=== PATIENT | female | born 1955 | race Caucasian/White ===

== ENCOUNTER 2024-06-22 14:38 | Outpatient (OUT) | payer OTHER, SELFPAY ==
[2024-06-22 15:00] LABS: Basophils Absolute Auto 0.1 10^3/uL (0.0-0.1); Basophils Percent Auto 0.8 % (0.2-2.0); Hemoglobin 15.5 g/dL (12.0-16.0); Lymphocytes Percent Auto 37.6 % (20.5-60.0); Monocytes Absolute Auto 0.8 10^3/uL (0.3-0.8); Monocytes Percent Auto 10.4 % (1.7-12.0); Neutrophils Percent Auto 51.2 % (43.0-75.0); Platelet Count 223 10^3/uL (150-450); White Blood Count 7.9 10^3/uL (4.0-11.0)
[2024-06-22 15:35] LABS: Alanine Aminotransferase 14 U/L (14-59); Albumin Globulin Ratio 0.9; Albumin Level 3.1 g/dL (3.4-5.0); Alkaline Phosphatase 106 U/L (46-116); Aspartate Amino Transferase 18 U/L (15-37); Bilirubin Direct 0.1 mg/dL (0.0-0.2); Bilirubin Total 0.2 mg/dL (0.2-1.0); Calcium 9.1 mg/dL (8.5-10.1); Carbon Dioxide 27.3 mmol/L (21.0-32.0); Chloride 107 mmol/L (98-107); Chol HDL Ratio 2.6; Cholesterol 216 mg/dL (<=200); Estimated GFR (African America >60 (>=60 mL/min/1.73m^2); Estimated GFR (Non-African Ame 59 (>=60 mL/min/1.73m^2); Globulin 3.5 g/dL; Glucose 82 mg/dL (74-106); HDL Cholesterol 82 mg/dL (40-60); Potassium 4.3 mmol/L (3.5-5.1); Sodium 144 mmol/L (136-145); Total Protein 6.6 g/dL (6.4-8.2); Triglycerides 201 mg/dL (<=150); VLDL CHOLESTEROL 40.2 mg/dL
== END 2024-06-22 14:39 | disposition home or self-care (01) ==
LOC: LAB 14:43
PROVIDERS: PCP Family Medicine; Visit Provider Family Medicine
DX: Z79.899 Other long term (current) drug therapy (principal); Z13.220 Encounter for screening for lipoid disorders
CPT/HCPCS: 36415; 80048; 80061; 80076; 85025

== ENCOUNTER 2024-07-13 11:12 | Outpatient (OUT) | payer OTHER, SELFPAY ==
--- NOTE | 2024-07-13 11:19 | MM_ITS ---
Patient Name: SLIME CUMMINGS MR#: [id number] : 1955 Exam Date: 07/13/2024 Ordering Doctor: DR Lamont Lechuga . RADIOLOGY REPORT PROCEDURE: MM TOMOSYNTHESIS SCREENING BI COMPARISON: MG MAMM SCREEN 3D [facility] CAD, 11/12/2022. MG MAMM SCREEN 3D [facility] CAD, 07/07/2021. MG MAMM SCREEN [facility] W CAD, 06/19/2020. MG MAMM SCREEN [facility] W CAD, 07/05/2013. INDICATIONS: Screening Calculator Name NCI Breast Cancer Risk Assessment Tool 5 Year Breast Cancer Risk 1.90% Lifetime Breast Cancer Risk 6.40% Personal Breast Cancer No Personal Ovarian Cancer No Treatments None Family Cancers Father with lung cancer at age 55. LOCATION: [facility] BREAST COMPOSITION: There are scattered areas of fibroglandular density. FINDINGS: DIAGNOSTIC CATEGORY 2--BENIGN FINDING: RIGHT BREAST: No significant suspicious finding. Scattered benign-appearing calcifications are present. No significant change has occurred. LEFT BREAST: No significant suspicious finding. Scattered benign-appearing lymph nodes are present. No significant change has occurred. RECOMMENDATIONS: ROUTINE MAMMOGRAM AND CLINICAL EVALUATION IN 12 MONTHS. PLEASE NOTE: A NORMAL MAMMOGRAM DOES NOT EXCLUDE THE POSSIBILITY OF BREAST CANCER. A CLINICALLY SUSPICIOUS PALPABLE LUMP SHOULD BE BIOPSIED. Dictated by: Jaydon Randolph M.D. on 07/13/2024 at 15:38 Approved by: Jaydon Randolph M.D. on 07/13/2024 at 15:41
--- OUTSIDE RECORDS SUMMARY | 2024-07-13 11:23 | XMS_ITS | CCD ---
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 Name Role Phone DIMPLE HERNADEZ Admitting Unavailable DIMPLE HERNADEZ Consulting Unavailable DIMPLE HERNADEZ Attending Unavailable DILLON, DR LAMONT Weston Primary Care Unavailable DILLON, DR LAMONT Weston Attending Unavailable ANNETTE, DR JAYDON Nicole Consulting Unavailable DILLON, DR LAMONT Weston Admitting Unavailable DILLON, DR LAMONT Weston Primary Care Unavailable DILLON, DR LAMONT Weston Consulting Unavailable Lamont Carranza MD Primary Care Provider Lamont Carranza MD Unavailable LAMONT CARRANZA Attending Unavailable DILLON, LAMONT Attending Unavailable Medications Current Medications Medication Drug Class(es) Dates Sig (Normalized) Sig (Original) methocarbamol 750 mg oral tablet (4 sources) Muscle Relaxant Start: 03-22-2024 take 1 tablet by mouth four times daily as needed for muscle spasms methocarbamol (Robaxin) 750 MG tablet Indications: Lumbar spondylosis Take 1 tablet (750 mg) by mouth 4 (four) times a day as needed for muscle spasms 60 tablet 3 03/22/2024 Active nabumetone 500 mg oral tablet (3 sources) Nonsteroidal Anti-inflammatory Drug Start: 06-22-2024 take 1 tablet by mouth twice daily as needed for pain nabumetone (Relafen) 500 MG tablet Indications: Lumbar spondylosis Take 1 tablet (500 mg) by mouth 2 (two) times a day as needed for mild pain or moderate pain 60 tablet 3 06/22/2024 Active Start: 06-22-2024 take 1 tablet by sonido twice daily as needed for pain nabumetone (Relafen) 500 MG tablet Indications: Lumbar spondylosis Take 1 tablet (500 mg) by mouth 2 (two) times a day as needed for mild pain or moderate pain 60 tablet 3 06/22/2024 Active Problems Active Problems Problem Classification Problem Date Documented Da te Episodic/Chronic Other aftercare (4 sources) 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; Translations: [OTH USP CURRENT DRUG THERAPY] Onset: 11-12-2022 Episodic Other aftercare (5 sources) Long-term current use of drug therapy; Translations: [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] Onset: 06-22-2024 06-22-2024 Episodic Other connective tissue disease (1 source) Other muscle spasm; Translations: [OTHER MUSCLE SPASM] Onset: 12-29-2022 Episodic Other screening for suspected conditions (not mental disorders or infectious disease) (9 sources) Encounter for screening for lipoid disorders; Translations: [Encounter for screening mammogram for malignant neoplasm of breast] Onset: 11-20-2022 06-22-2024 Episodic Residual codes; unclassified (1 source) Family history of malignant neoplasm of trachea, bronchus and lung; Translations: [FAM HX MALIG NEOPLSM TRACH BRON LNG] Onset: 11-20-2022 Episodic Spondylosis; intervertebral disc disorders; other back problems (6 sources) Lumbar spondylosis; Translations: [Spondylosis without myelopathy or radiculopathy, lumbar region] Onset: 03-22-2024 03-22-2024 Chronic Substance-related disorders (1 source) Nicotine dependence, cigarettes, uncomplicated; Translations: [NICOTINE DEPEND CIGARETTES UNCOMP] Onset: 12-29-2022 Chronic Past or Other Problems Problem Classification Problem Date Documented Da te Episodic/Chronic Miscellaneous mental health disorders (4 sources) Insomnia; Translations: [Adjustment insomnia] Onset: 03-22-2024 03-22-2024 Episodic Other upper respiratory infections (4 sources) Acute pansinusitis; Translations: [Acute pansinusitis, unspecified] Onset: 03-22-2024 Resolved: 06-22-2024 03-22-2024 Episodic Spondylosis; intervertebral disc disorders; other back problems (8 sources) Cervicalgia; Translations: [Torticollis] Onset: 12-27-2022 Episodic Results Test Name Value Interpretation Reference Range Facility ALL CBC WITH AUTO DIFFon BASOPHILS ABSOLUTE AUTO 0.1 [facility] Basophils/100 WBC (Bld) 0.8 % 0.2 - 2.0 % [facility] Eosinophils/100 WBC (Bld) 0 % Low 0.9 - 7.0 % [facility] Erythrocyte distribution width (RBC) [Ratio] 13 % 11.0 - 15.0 % [facility] Hematocrit (Bld) [Volume fraction] 47 % 36.0 - 48.0 % [facility] Hemoglobin (Bld) [Mass/Vol] 15.5 g/dL 12.0 - 16.0 g/dL [facility] IMMATURE GRANULOCYTES ABS AUTO 0 [facility] Immature granulocytes/100 WBC (Bld) 0 % 0.0 - 0.5 % [facility] Interpretation and review of laboratory results Abnormal [facility] LYMPHOCYTES ABSOLUTE AUTO 3 [facility] Lymphocytes/100 WBC (Bld) 37.6 % 20.5 - 60.0 % [facility] MCH (RBC) [Entitic mass] 33 pg 26.7 - 34.0 pg [facility] MCHC (RBC) [Mass/Vol] 33 g/dL 29.9 - 35.2 g/dL [facility] MCV (RBC) [Entitic vol] 100 fL High 81.0 - 99.0 fL [facility] MONOCYTES ABSOLUTE AUTO 0.8 [facility] Monocytes/100 WBC (Bld) 10.4 % 1.7 - 12.0 % [facility] NEUTROPHILS ABSOLUTE AUTO 4 [facility] Neutrophils/100 WBC (Bld) 51.2 % 43.0 - 75.0 % [facility] Platelet mean volume (Bld) [Entitic vol] 8 fL Low 9.5 - 13.5 fL [facility] PLT 223 [facility] RBC 4.7 [facility] WBC 7.9 [facility] CBC AUTO DIFFon 11-12-2022 BASO # 0.0 103/ul Normal 0.0-0.1 [facility] Comment on above: Performed By: #### C BC #### [facility] [address] [address] [address] Alyse Paulino Basophils/100 WBC (Bld) 0.6 % Normal 0.2-2.0 [facility] Comment on above: Performed By: #### C BC #### [facility] [address] [place] [address] Dr. Alyse Paulino EO # 0.2 103/ul Normal 0.0-0.7 [facility] Comment on above: Performed By: #### C BC #### [facility] [address] [place] [address] Dr. Alyse Paulino Eosinophils/100 WBC (Bld) 2.8 % Normal 0.9-7.0 [facility] Comment on above: Performed By: #### C BC #### [facility] [address] [place] [address] Dr. Alyse Paulino Erythrocyte distribution width (RBC) [Ratio] 13.1 % Normal 11.0-15.[address] [facility] Comment on above: Performed By: #### C BC #### [facility] [address] [place] [address] Dr. Alyse Paulino Hematocrit (Bld) [Volume fraction] 46.7 % Normal 36.0-48.[address] [facility] Comment on above: Performed By: #### C BC #### [facility] [address] [place] [address] Dr. Alyse Paulino Hemoglobin (Bld) [Mass/Vol] 14.9 g/dL Normal 12.0-16.[address] [facility] Comment on above: Performed By: #### C BC #### [facility] [address] [place] [address] Dr. Alyse Paulino IG # 0.01 10e3/ul Normal 0.00-0.[address] [facility] Comment on above: Performed By: #### C BC #### [facility] [address] [place] [address] Dr. Alyse Paulino IG % 0.1 % Normal 0.0-0.5 [facility] Comment on above: Performed By: #### C BC #### [facility] [address] [place] [address] Dr. Alyse Paulino LYMPH # 2.4 103/ul Normal 1.2-3.8 [facility] Comment on above: Performed By: #### C BC #### [facility] [address] [place] [address] Dr. Alyse Paulino Lymphocytes/100 WBC (Bld) 33.1 % Normal 20.5-60.0 [facility] Comment on above: Performed By: #### C BC #### [facility] [address] [place] [address] Dr. Alyse Paulino MANUAL DIFF REQ NO Normal [facility] Comment on above: Performed By: #### C BC #### [facility] [address] [address] [address] Alyse Paulino MCH (RBC) [Entitic mass] 31.9 pg Normal 26.7-34.0 [facility] Comment on above: Performed By: #### C BC #### [facility] [address] [place] [address] Dr. Alyse Paulino MCHC (RBC) [Mass/Vol] 31.9 g/dL Normal 29.9-35.2 [facility] Comment on above: Performed By: #### C BC #### [facility] [address] [place] [address] Dr. Alyse Paulino MCV (RBC) [Entitic vol] 100.0 fL Critically high 81.0-99.0 [facility] Comment on above: Performed By: #### C BC #### [facility] [address] [place] [address] Dr. Alyse Paulino MONO # 0.6 103/ul Normal 0.3-0.8 [facility] Comment on above: Performed By: #### C BC #### [facility] [address] [place] [address] Dr. Alyse Paulino Monocytes/100 WBC (Bld) 7.9 % Normal 1.7-12.0 [facility] Comment on above: Performed By: #### C BC #### [facility] [address] [place] [address] Dr. Alyse Paulino NEUT # 4.0 103/ul Normal 1.4-6.5 [facility] Comment on above: Performed By: #### C BC #### [facility] [address] [place] [address] Dr. Alyse Paulino Neutrophils/100 WBC (Bld) 55.5 % Normal 43.0-75.[address] [facility] Comment on above: Performed By: #### C BC #### [facility] [address] [place] [address] Dr. Alyse Paulino Platelet mean volume (Bld) [Entitic vol] 7.9 fL Critically low 9.5-13.[address] [facility] Comment on above: Performed By: #### C BC #### [facility] [address] [place] [address] Dr. Alyse Paulino PLT 215 103/ul Normal 150-[address] [facility] Comment on above: Performed By: #### C BC #### [facility] [address] [place] [address] Dr. Alyse Paulino RBC 4.67 106/ul Normal 4.20-5.[address] [facility] Comment on above: Performed By: #### C BC #### [facility] [address] [place] [address] Dr. Alyse Paulino WBC 7.2 103/ul Normal 4.0-11.[address] [facility] Comment on above: Performed By: #### C BC #### [facility] [address] [place] [address] Dr. Alyse Paulino LIPID PROFILEon 11-12-2022 CHOL-HDL RATIO NORM SEE BELOW Normal [facility] Comment on above: Result Comment: 3.3 - 4.4 LOW RISK 4.4 - 7.1 AVERAGE RISK 7.1 - 11.0 MODERATE RISK >11.0 HIGH RISK Performed By: #### L IPID, LIVER, BMP #### [facility] [address] [place] [address] Dr. Alyse Paulino Cholesterol [Mass/Vol] 215 mg/dL Critically high <=200 [facility] Comment on above: Performed By: #### L IPID, LIVER, BMP #### [facility] [address] [place] [address] Dr. Alyse Paulino Cholesterol in HDL [Mass/Vol] 82 mg/dL Critically high 40-[address] [facility] Comment on above: Performed By: #### L IPID, LIVER, BMP #### [facility] [address] [address] [address] Alyse Paulino Cholesterol in LDL [Mass/Vol] 101.6 mg/dL Normal [facility] Comment on above: Performed By: #### L IPID, LIVER, BMP #### [facility] [address] [address] [address] Alyse Paulino Cholesterol.total/Ch olesterol in HDL [Mass ratio] 2.6 {ratio} Normal [facility] Comment on above: Performed By: #### L IPID, LIVER, BMP #### [facility] [address] [address] [address] Alyse Paulino HDL NORMAL > or = 60 mg/dl - LOW CARDIOVASCULAR RISK <40 mg/dl - HIGH CARDIOVASCULAR RISK Normal [facility] Comment on above: Performed By: #### L IPID, LIVER, BMP #### [facility] [address] [address] [address] Alyse Paulino LDL CALC NORMAL SEE BELOW Normal [facility] Comment on above: Result Comment: <100 mg/dl OPTIMAL 100 - 129 mg/dl NEAR OR ABOVE OPTIMAL 130 - 159 mg/dl BORDERLINE HIGH 160 - 189 mg/dl HIGH >190 mg/dl VERY HIGH Performed By: #### L IPID, LIVER, BMP #### [facility] [address] [address] [address] Alyse Paulino Triglyceride [Mass/Vol] 157 mg/dL Critically high <=150 [facility] Comment on above: Performed By: #### L IPID, LIVER, BMP #### [facility] [address] [address] [address] Alyse Paulino VLDL CALC 31.4 mg/dL Normal [facility] Comment on above: Performed By: #### L IPID, LIVER, BMP #### [facility] [address] [address] [address] Alyse Paulino LIVER PROFILEon 11-12-2022 Albumin [Mass/Vol] 3.4 g/dL Normal 3.4-5.0 [facility] Comment on above: Performed By: #### L IPID, LIVER, BMP #### [facility] [address] [address] [address] Alyse Paulino Albumin/Globulin [Mass ratio] 1.1 {ratio} Normal [facility] Comment on above: Performed By: #### L IPID, LIVER, BMP #### [facility] [address] [address] [address] Alyse Paulino ALP [Catalytic activity/Vol] 94 U/L Normal 46-[address] [facility] Comment on above: Performed By: #### L IPID, LIVER, BMP #### [facility] [address] [address] [address] Alyse Paulino ALT [Catalytic activity/Vol] 14 U/L Normal 14-[address] [facility] Comment on above: Performed By: #### L IPID, LIVER, BMP #### [facility] [address] [address] [address] Alyse Paulino AST [Catalytic activity/Vol] 17 U/L Normal 15-[address] [facility] Comment on above: Performed By: #### L IPID, LIVER, BMP #### [facility] [address] [address] [address] Alyse Paulino BILI, CONJUGATED 0.1 mg/dL Normal 0.0-0.2 [facility] Comment on above: Performed By: #### L IPID, LIVER, BMP #### [facility] [address] [address] [address] Alyse Paulino Bilirubin [Mass/Vol] 0.3 mg/dL Normal 0.2-1.[address] [facility] Comment on above: Performed By: #### L IPID, LIVER, BMP #### [facility] [address] [address] [address] Alyse Paulino Globulin (S) [Mass/Vol] 3.2 g/dL Normal [facility] Comment on above: Performed By: #### L IPID, LIVER, BMP #### [facility] [address] [address] [address] Alyse Paulino Protein [Mass/Vol] 6.6 g/dL Normal 6.4-8.2 [facility] Comment on above: Performed By: #### L IPID, LIVER, BMP #### [facility] [address] [address] [address] Alyse Paulino MG MAMM SCREEN 3D MILEY CADon 11-12-2022 MG MAMM SCREEN 3D MILEY CAD Patient: KIRSTIN CUMMINGS Exam Date: 11/12/2022 : 1955 Gender:F Ordering : DR LAMONT CARRANZA . Admission #: [id number] Family : Order #: [id number] CLICK HERE TO VIEW EXAM RADIOLOGY REPORT PROCEDURE: MAMMOGRAM SCREENING 3D BILATERAL CAD COMPARISON: MG MAMM SCREEN MILEY W CAD, 06/19/2020. MG MAMM SCREEN MILEY W CAD, 08/11/2017. MG MAMM SCREEN MILEY W CAD, 07/05/2013. MG MAMM SCREEN 3D MILEY CAD, 07/07/2021. INDICATIONS: Screening mammography Calculator Name NCI Breast Cancer Risk Assessment Tool 5 Year Breast Cancer Risk 1.90% Lifetime Breast Cancer Risk 6.70% Personal Breast Cancer No Personal Ovarian Cancer No Treatments None Family Cancers Father with lung cancer at age 55. LOCATION: [facility] BREAST COMPOSITION: Scattered areas fibroglandular density. FINDINGS: DIAGNOSTIC CATEGORY 2--BENIGN FINDING: RIGHT BREAST: No significant suspicious finding. Scattered benign-appearing calcifications are present. No significant change has occurred. LEFT BREAST: No significant suspicious finding. Scattered benign-appearing nodules are present. No significant change has occurred. RECOMMENDATIONS: ROUTINE MAMMOGRAM AND CLINICAL EVALUATION IN 12 MONTHS. PLEASE NOTE: A NORMAL MAMMOGRAM DOES NOT EXCLUDE THE POSSIBILITY OF BREAST CANCER. A CLINICALLY SUSPICIOUS PALPABLE LUMP SHOULD BE BIOPSIED. Dictated by: Jaydon Randolph M.D. on 11/12/2022 at 12:39 Approved by: Jaydon Randolph M.D. on 11/12/2022 at 12:[address] [facility] PROF CHEM 8 (BAS METB)on Anion gap [Moles/Vol] 10.3 mmol/L Normal [facility] Comment on above: Performed By: #### L IPID, LIVER, BMP #### [facility] [address] [address] [address] Alyse Paulino Calcium [Mass/Vol] 9.4 mg/dL Normal 8.5-10.1 [facility] Comment on above: Performed By: #### L IPID, LIVER, BMP #### [facility] [address] [address] [address] Alyse Paulino Chloride [Moles/Vol] 108 mmol/L Critically high 98-107 [facility] Comment on above: Performed By: #### L IPID, LIVER, BMP #### [facility] [address] [address] [address] Alyse Paulino CO2 [Moles/Vol] 30.2 mmol/L Normal 21.0-32.0 [facility] Comment on above: Performed By: #### L IPID, LIVER, BMP #### [facility] [address] [place] [address] Dr. Alyse Paulino Creatinine [Mass/Vol] 0.78 mg/dL Normal 0.55-1.[address] [facility] Comment on above: Performed By: #### L IPID, LIVER, BMP #### [facility] [address] [address] [address] Alyse Paulino EGFR-AF MICRONESIAN >60 Normal >=60 [facility] Comment on above: Performed By: #### L IPID, LIVER, BMP #### [facility] [address] [place] [address] Dr. Alyse Paulino EGFR-NON AF MICRONESIAN >60 Normal >=60 [facility] Comment on above: Performed By: #### L IPID, LIVER, BMP #### [facility] [address] [address] [address] Alyse Paulino Glucose [Mass/Vol] 91 mg/dL Normal 74-106 [facility] Comment on above: Performed By: #### L IPID, LIVER, BMP #### [facility] [address] [address] [address] Alyse Paulino Potassium [Moles/Vol] 4.5 mmol/L Normal 3.5-5.1 [facility] Comment on above: Performed By: #### L IPID, LIVER, BMP #### [facility] [address] [place], [place] [address] Dr. Alyse Paulino Sodium [Moles/Vol] 144 mmol/L Normal 136-145 [facility] Comment on above: Performed By: #### L IPID, LIVER, BMP #### [facility] [address] [place], [place] [address] Dr. Alyse Paulino Urea nitrogen [Mass/Vol] 14.0 mg/dL Normal 7.0-18.[address] [facility] Comment on above: Performed By: #### L IPID, LIVER, BMP #### [facility] [address] [place], [place] [address] Dr. Alyse Paulino Urea nitrogen/Creatinine [Mass ratio] 17.9 mg/mg Normal [facility] Comment on above: Performed By: #### L IPID, LIVER, BMP #### [facility] [address] [place], [place] [address] Dr. Alyse Paulino Vital Signs Date Time Vital Sign Value Performing Clinician Ran hilario 06-22-2024 10:47-0400 Body height 152.4 cm Lamont Carranza MD Work Phone: [facility] 06-22-2024 10:47-0400 Body mass index (BMI) [Ratio] 23.05 kg/m2 Lamont Carranza MD Work Phone: [facility] 06-22-2024 10:47-0400 Body temperature 97.11 [degF] Lamont Carranza MD Work Phone: [facility] 06-22-2024 10:47-0400 Body weight 53.52 kg Lamont Carranza MD Work Phone: [facility] 06-22-2024 10:47-0400 Diastolic blood pressure 72 mm[Hg] Lamont Carranza MD Work Phone: [facility] 06-22-2024 10:47-0400 Heart rate 77 /min Lamont Carranza MD Work Phone: [facility] 06-22-2024 10:47-0400 Respiratory rate 20 /min Lamont Carranza MD Work Phone: [facility] 06-22-2024 10:47-0400 SaO2% (BldA) [Mass fraction] 96 % Lamont Carranza MD Work Phone: [facility] 06-22-2024 10:47-0400 Systolic blood pressure 138 mm[Hg] Lamont Carranza MD Work Phone: [facility] Healthcare Encounters Encounter Date Encounter Type Care Provider Facility Start: 06-22-2024 End: 06-22-2024 Bamboo flowsheet Lamont Carranza MD Work Phone: [facility] Start: 06-22-2024 End: 06-22-2024 [email or web address] Lamont Carranza MD Work Phone: [facility] Start: 06-22-2024 End: 06-22-2024 [facility] Result Encounter Lamont Carranza MD Work Phone: [facility] External Department Unsolicited Start: 06-22-2024 End: 06-22-2024 Office outpatient visit 15 minutes Lamont Carranza MD Work Phone: [facility] Comment on above: Lumbar spondylosis ( Primary Dx); Encounter for long-term current use of medication; Lipid screening; Breast cancer screening by mammogram Start: 06-22-2024 End: 06-22-2024 ambulatory LAMONT CARRANZA Not Available Start: 03-22-2024 End: 03-22-2024 ambulatory LAMONT CARRANZA Not Available Start: 12-27-2022 End: 12-27-2022 ambulatory DIMPLE YO . Facility:[facility] Start: 11-12-2022 End: 11-13-[address] LAMONT CARRANZA Facility:[facility] Procedures Date Procedure Procedure Detail Performing Clinician Start: 06-22-2024 ALL CBC WITH AUTO DIFF Lamont Carranza MD Work Phone: Start: 10-23-2021 Colonoscopy Lamont buck MD Work Phone: Start: 08-08-2014 Mammography Lamont buck MD Work Phone: Plan of Treatment Date Care Activity Detail Author Start: 10-23-2031 Screening for malign ant neoplasm of colon [facility] Start: 06-22-2025 Medicare Annual Wellness (AWV) Medicare Annual Wellness (AWV) [facility] Start: 2024 End: 2024 Patient encounter procedure 2024 10:00 AM EST Office Visit [facility] [address] [place] [id number] Lamont Carranza MD [address] [place] [phone] [facility] Start: 06-22-2024 End: 06-22-2025 Basic metabolic 1998 panel - Serum or Plasma Basic metabolic panel Lab Routine Encounter for long-term current use of medication Expected: 06/22/2024 (Approximate), Expires: 06/22/2025 [facility] Work Phone: Comment on above: Expected: 06/22/2024 (Approximate), Expires: 06/22/2025 Start: 06-22-2024 End: 06-22-2025 CBC W Auto Differential panel - Blood CBC and differential Lab Routine Encounter for long-term current use of medication Expected: 06/22/2024 (Approximate), Expires: 06/22/2025 [facility] Comment on above: Expected: 06/22/2024 (Approximate), Expires: 06/22/2025 Start: 06-22-2024 End: 06-22-2025 Hepatic function 2000 panel - Serum or Plasma Hepatic function panel Lab Routine Encounter for long-term current use of medication Expected: 06/22/2024 (Approximate), Expires: 06/22/2025 [facility] Comment on above: Expected: 06/22/2024 (Approximate), Expires: 06/22/2025 Start: 06-22-2024 End: 06-22-2025 Lipid 1996 panel - Serum or Plasma Lipid panel Lab Routine Lipid screening Expected: 06/22/2024 (Approximate), Expires: 06/22/2025 [facility] Comment on above: Expected: 06/22/2024 (Approximate), Expires: 06/22/2025 Start: 06-22-2024 End: 08-22-2025 MG Breast - bilateral Screening Bilateral screening mammogram Imaging Routine Breast cancer screening by mammogram Expected: 06/22/2024, Expires: 08/22/2025 [facility] Comment on above: Expected: 06/22/2024 , Expires: 08/22/2025 Start: 06-22-2024 End: 06-22-2024 Patient encounter procedure 06/22/2024 10:45 AM EDT Office Visit [facility] [address] [place] [address] Lamont Carranza MD [address] [place] [phone] Arrived [facility] Comment on above: Arrived Start: 04-30-2024 Influenza vaccination Influenza Vacc ine (#1) [facility] Start: 08-08-2015 Screening for malign ant neoplasm of breast Mammogram [facility] Start: 1996 Screening for malign ant neoplasm of breast Mammogram [facility] Start: 1962 Pneumococcal Vaccine : 65+ Years (1 of 2 - PCV) Pneumococcal Vaccine: 65+ Years (1 of 2 - PCV) [facility] Healthcare Start: 1955 Medicare Annual Wellness (AWV) Medicare Annual Wellness (AWV) [facility] Start: 1955 Screening for malign ant neoplasm of colon [facility] Payers Date Payer Category Payer Medicare (Managed Care) [facility] [id number] 2024 Unknown [id number] 2021 Medicare MEDICARE [id number] 1959 Unknown [id number] 1955 Unknown [id number] 1956 Unknown [id number] 1956 Unknown [id number] 1956 Unknown [id number] Social History Date Type Detail Facility Start: 03-22-2024 Tobacco smoking stat [facility] Smokes tobacco daily [facility] History of tobacco use Cigarette Smoker [facility] Start: 03-22-2024 Tobacco use and exposure Smokeless t obacco non-user [facility] Start: 03-22-2024 End: 06-22-2024 History of Social function [facility] Start: 03-22-2024 End: 06-22-2024 Tobacco use panel [facility] Start: 1955 Sex assigned at Not on file [facility] History of Present illness Narrative 06-22-2024 Lamont Carranza MD - 06/22/2024 11:03 AM EDTMjames Carranza MD - 06/22/2024 10:45 AM EDT Note Date & Type Note Facility 06-22-2024 History of Presen t illness Narrative Associated Problem(s): Lumbar spondylosis Recently with increased pain but improved. Start relafen PRN. Use robaxin for spasms. Use heat and massage PRN. If worsen will need x-ray and PT. Images from the original note were not included. Subjective Patient ID: Kirstin Cummings is a 68 y.o. female who presents for Follow-up (3 m) and Back Pain (Lower back pain). C/o worsening back pain over the past week. History of lumbar spondylosis and no recent change in activity. No fall, injury, or trauma. Pain in low back and across top hips. Pain radiated into left gluteal region and down leg to thigh. Pain with walking and standing. Heat helped. Tried robaxin and not much relief. Radicular symptoms improved today and minimal. Still mild pain in low back. Review of Systems Respiratory: Negative for cough, shortness of breath and wheezing. Cardiovascular: Negative for chest pain and palpitations. Gastrointestinal: Negative for abdominal pain, diarrhea, nausea and vomiting. Genitourinary: Negative for dysuria. Objective Physical Exam Constitutional: General: She is not in acute distress. Appearance: Normal appearance. HENT: Head: Normocephalic. Right Ear: Tympanic membrane normal. Left Ear: Tympanic membrane normal. Eyes: Extraocular Movements: Extraocular movements intact. Pupils: Pupils are equal, round, and reactive to light. Cardiovascular: Rate and Rhythm: Normal rate and regular rhythm. Heart sounds: No murmur heard. No friction rub. No gallop. Pulmonary: Effort: Pulmonary effort is normal. Breath sounds: Normal breath sounds. No wheezing, rhonchi or rales. Abdominal: General: Bowel sounds are normal. There is no distension. Palpations: Abdomen is soft. Tenderness: There is no abdominal tenderness. There is no guarding or rebound. Musculoskeletal: Cervical back: Neck supple. Right lower leg: No edema. Left lower leg: No edema. Neurological: Mental Status: She is alert. Assessment/Plan Problem List Items Addressed This Visit Lumbar spondylosis - Primary Recently with increased pain but improved. Start relafen PRN. Use robaxin for spasms. Use heat and massage PRN. If worsen will need x-ray and PT. Relevant Medications nabumetone (Relafen) 500 MG tablet Encounter for long-term current use of medication Relevant Orders Basic metabolic panel CBC and differential Hepatic function panel Lipid screening Relevant Orders Lipid panel Other Visit Diagnoses Breast cancer screening by mammogram Relevant Orders Bilateral screening mammogram documented in this encounter [facility] Evaluation note Note Date & Type Note Facility Evaluation note Diagnosis Lumbar spondylosis- Primary Lumbosacral spondylosis without myelopathy Encounter for long-term current use of medication Lipid screening Screening for lipoid disorders Breast cancer screening by mammogram documented in this encounter [facility] Summary Purpose Family History No Family History Records FoundNo Family History Records Found Advance Directives No Advanced Directives Records FoundNo Advanced Directives Records Found Additional Source Comments INFORMATION SOURCE (unrecogn ized section and content) DATE CREATED AUTHOR 12/30/2022 [facility] DATE CREATED AUTHOR AUTHOR'S ORGANIZ ATION 06/23/2024 [facility] Care Teams (unrecognized sec tion and content) 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 Start Date End Date Lamont Carranza MD [address] [place] [phone] PCP - General Family Medicine 03/22/24 Lamont Carranza MD [address] [place] [phone] PCP - Devoted 04/30/24 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 Start Date End Date Lamont Carranza MD [address] [place] [phone] PCP - General Family Medicine 03/22/24 Lamont Carranza MD [address] [place] [phone] PCP - Devoted 04/30/24 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 This clinical summary was aggregated from multiple sources. Caution should be exercised in using it in the provision of clinical care. This summary normalizes information from multiple sources, and as a consequence, information in this document may materially change the coding, format and clinical context of patient data. In addition, data may be omitted in some cases. CLINICAL DECISIONS SHOULD BE BASED ON THE PRIMARY CLINICAL RECORDS. [employer] provides no warranty or guarantee of the accuracy or completeness of information in this document.
== END 2024-07-13 11:13 | disposition home or self-care (01) ==
LOC: MAMMO 11:13
PROVIDERS: PCP Family Medicine; Visit Provider Family Medicine
DX: Z12.31 Encounter for screening mammogram for malignant neoplasm of breast (principal); Z80.1 Family history of malignant neoplasm of trachea, bronchus and lung
CPT/HCPCS: 77063; 77067

== ENCOUNTER 2024-11-14 07:24 | Emergency (ER) | payer OTHER, SELFPAY ==
[2024-11-14 07:31] VITALS: BP 162/98; PULSE 81; TEMP 36.8; O2SAT 96; BMI 23.4
[2024-11-14 07:41] VITALS: O2SAT 99
--- NOTE | 2024-11-14 07:49 | ED.EXTPRO1 ---
HPI - Extremity Problem General Chief complaint: Extremity Problem, Nontraumatic Stated complaint: LEFT HIP PAIN Time Seen by Provider: 11/14/24 07:38 Source: patient Mode of arrival: walk-in Limitations: no limitations History of Present Illness HPI Narrative: The patient have history of back pain that is chronic usually associated with sciatica, mentioned that for the last 2 days she started having hip pain on the left side, she is not able to sit on that side because of the pain she denies any fall or trauma, the patient have no difficulty walking and no history of sitting for long periods on a hard surface mentioned she took the pain meds perscribed for her back pain and it didnt help . The patient have no incontinence of urine or stool and she denies any weakness in left leg. Related Data Home Medications ?Medication ?Instructions ?Recorded ?Confirmed nabumetone 500 mg tablet 500 mg PO BID 11/14/24 11/14/24 Previous Rx's ?Medication ?Instructions ?Recorded oxycodone-acetaminophen 5 mg-325 1 tab PO BID PRN pain 3 days #6 11/14/24 mg tablet (Percocet) tabs prednisone 20 mg tablet 40 mg (2 x 20 mg) PO DAILY 5 days 11/14/24 #10 tabs Allergies Allergy/AdvReac Type Severity Reaction Status Date / Time No Known Drug Allergies Allergy Verified 11/14/24 07:31 Review of Systems ROS Status of ROS 10 or more systems reviewed and unremarkable except as noted in history and below Exam Narrative Exam Narrative: Nurses notes and vital signs reviewed and patient is not hypoxic. General: Well-appearing and in no apparent distress. Skin: Warm, dry, no pallor noted. No rash. Head: Normocephalic, atraumatic. Neck: Supple Back: No midline thoracic or lumbar vertebral tenderness. No CVA tenderness Musculoskeletal: normal ROM, no calf or popliteal tenderness, no lower extremity edema/swelling, the patient only have tenderness upon palpation of the posterior aspect of the hip Neurological: A&O x4. No cranial nerve dysfunction observed. No truncal ataxia. Moves all extremities. Sensation intact. Psychiatric: Cooperative and interactive. Normal mood and affect. Constitutional Vital Signs, click to edit/add: Last Vital Signs Temp 98.2 F 11/14/24 07:31 Pulse 81 11/14/24 07:31 Resp 18 11/14/24 07:31 BP 162/98 H 11/14/24 07:31 Pulse Ox 99 11/14/24 07:41 O2 Del Method Room Air 11/14/24 07:41 Course Vital Signs Vital signs: Vital Signs Temperature 98.2 F 11/14/24 07:31 Pulse Rate 81 11/14/24 07:31 Respiratory Rate 18 11/14/24 07:31 Blood Pressure 162/98 H 11/14/24 07:31 Pulse Oximetry 96 11/14/24 07:31 Oxygen Delivery Method Room Air 11/14/24 07:31 Temperature 98.2 F 11/14/24 07:31 Pulse Rate 81 11/14/24 07:31 Respiratory Rate 18 11/14/24 07:31 Blood Pressure 162/98 H 11/14/24 07:31 Pulse Oximetry 99 11/14/24 07:41 Oxygen Delivery Method Room Air 11/14/24 07:41 MDM - Extremity (Nontraumatic) MDM Narrative Medical decision making narrative: X-ray of the left hip showed no acute pathology The patient was treated in the ER with Percocet and Toradol after which she was feeling much better and she also was given Norflex The patient was discharged home after the x-ray was negative for any acute pathology with the prednisone and Percocet with the diagnosis mostly bursitis The patient is to follow up with primary care physician in next 2-3 days or to return to the emergency department should any of the signs or symptoms worsen or new symptoms develop. The patient agrees with the following Diagnosis and Treatment plan and the patient will be discharged home. Discharge Plan Discharge Chief Complaint: Extremity Problem, Nontraumatic Clinical Impression: Bursitis of hip Qualifiers: Hip bursitis location: unspecified Laterality: left Qualified Code(s): M70.72 - Other bursitis of hip, left hip Patient Disposition: Home, Self-Care Time of Disposition Decision: 08:40 Condition: Good Prescriptions / Home Meds: New prednisone 20 mg tablet 40 mg PO DAILY 5 Days Qty: 10 0RF oxycodone-acetaminophen [Percocet] 5-325 mg tablet 1 tab PO BID PRN (Reason: pain) 3 Days Qty: 6 0RF No Action nabumetone 500 mg tablet 500 mg PO BID Print Language: Macedonian Instructions: Hip Bursitis (ED) Referrals: Lamont Lechuga MD [Primary Care Provider] - 1 week
[2024-11-14] MEDS: ORPHENADRINE 60 MG/ 2 ML VIAL IM (08:02)
[2024-11-14] MEDS: OXYCODONE HCL/ACETAMINOPHEN 5MG/325MG 1 TAB PO (08:02)
[2024-11-14] MEDS: KETOROLAC TROMETHAMINE 30 MG/ML VIAL 15 MG IM (08:03)
== END 2024-11-14 08:46 | disposition home or self-care (01) ==
PROVIDERS: Emergency Provider Emergency Medicine; PCP Family Medicine
DX: M70.72 Other bursitis of hip, left hip (principal)
CPT/HCPCS: 73502; 96372; 99284; J1885; J2360